=== PATIENT | male | born 1975 | race Caucasian/White ===

== ENCOUNTER → 2022-04-13 16:14 | Outpatient (ROUT) | payer OTHER, SELFPAY ==
[2022-04-13 17:58] LABS: Influenza A - CEPHEID Flu A NEGATIVE (NEGATIVE); Influenza B - CEPHEID Flu B NEGATIVE (NEGATIVE); Respiratory Syncytial Virus Negative (Negative)
[2022-04-13 18:02] LABS: COVID-19 CEPHEID 4-PLEX PCR Negative (Negative)
== END ==
PROVIDERS: PCP Family Medicine; Visit Provider Family Medicine
DX: R05.9 Cough, unspecified (principal); R68.83 Chills (without fever); Z20.822 Contact with and (suspected) exposure to COVID-19
CPT/HCPCS: 0241U

== ENCOUNTER → 2022-11-16 10:14 | Outpatient (CLI) | payer OTHER, SELFPAY ==
--- NOTE | 2022-11-16 | DI.RAD.S_ITS ---
PROCEDURE: XR FOOT RT MIN 3V INDICATIONS: RIGHT FOOT PAIN TECHNIQUE: 3 views of the foot were acquired. COMPARISON: None. FINDINGS: Bones: No fractures or dislocations. No suspicious bony lesions. Soft tissues: No tibiotalar joint effusion. Achilles tendon appears normal. IMPRESSION: No evidence acute bony abnormality. Dictated by: Nolberto Truong M.D. on 11/16/2022 at 15:02 Approved by: Nolberto Truong M.D. on 11/16/2022 at 15:02
== END ==
PROVIDERS: PCP Family Medicine; Referring Provider Family Medicine; Visit Provider Family Medicine
DX: L98.9 Disorder of the skin and subcutaneous tissue, unspecified (principal); M79.5 Residual foreign body in soft tissue
CPT/HCPCS: 73630

== ENCOUNTER → 2024-01-15 11:42 | Outpatient (CLI) | payer OTHER, SELFPAY ==
--- NOTE | 2024-01-15 11:47 | DI.RAD.S_ITS ---
PROCEDURE: XR HIP W PEL IF DONE BILAT 2V INDICATIONS: HIP BACK PAIN TECHNIQUE: < 3 views of the hip were acquired. COMPARISON: None. FINDINGS: Bones: There are no osseous abnormalities. SI and hip joints: Normal in width and alignment without arthritic change Soft tissues: No soft tissue swelling, calcification or mass. IMPRESSION: Normal pelvis Dictated by: Hakeem Veras M.D. on 01/16/2024 at 8:28 Approved by: Hakeem Veras M.D. on 01/16/2024 at 8:30
--- NOTE | 2024-01-15 11:47 | DI.RAD.S_ITS ---
PROCEDURE: XR LUMBAR SPINE 2-3V INDICATIONS: HIP BACK PAIN TECHNIQUE: 3 views of the lumbar spine were acquired. COMPARISON: None. FINDINGS: Lumbar spine curvature and alignment: Mild dextroscoliotic curve appreciated. There is 3 millimeters of L4 anterior subluxation due to degenerate facet disease. Bones: There are no osseous abnormalities. Disc spaces: Normal in height without significant degeneration. Intervertebral foramen: Moderate degenerative disc disease present at L1-2 through L4-5 with mild L5-S1 degenerative disc disease. There is moderate L5-S1 and L4-5 degenerative facet disease. Soft tissues: No soft tissue swelling, calcification or mass. IMPRESSION: Degeneration. Dictated by: Hakeem Veras M.D. on 01/16/2024 at 8:12 Approved by: Hakeem Veras M.D. on 01/16/2024 at 8:13
== END ==
LOC: RAD 11:45
PROVIDERS: PCP Family Medicine; Referring Provider Family Medicine; Visit Provider Family Medicine
DX: M51.36 Other intervertebral disc degeneration, lumbar region (principal); M51.37 Other intervertebral disc degeneration, lumbosacral region; M47.816 Spondylosis without myelopathy or radiculopathy, lumbar region; M47.817 Spondylosis without myelopathy or radiculopathy, lumbosacral region; M54.50 Low back pain, unspecified; M25.551 Pain in right hip; M25.552 Pain in left hip; G89.29 Other chronic pain
CPT/HCPCS: 72100; 73521

== ENCOUNTER → 2024-08-05 16:39 | Outpatient (CLI) | payer OTHER, SELFPAY ==
--- NOTE | 2024-08-05 | DI.RAD.S_ITS ---
PROCEDURE: XR HIP W PEL IF DONE RT 2V INDICATIONS: HIP PAIN TECHNIQUE: AP pelvis with lateral view(s) of the right hip(s). COMPARISON: [facility], CR, XR HIP W PEL IF DONE BILAT 2V, 01/15/2024, 11:45. FINDINGS: Bones: No fractures or dislocations. Pelvic ring appears intact. No suspicious bony lesions. Soft tissues: The visualized bowel gas pattern is normal. No suspicious soft tissue calcifications. IMPRESSION: No acute bony abnormality. Dictated by: Nimesh Jackson M.D. on 08/06/2024 at 1:58 Approved by: Nimesh Jackson M.D. on 08/06/2024 at 1:59
== END ==
LOC: RAD 16:40
PROVIDERS: PCP Family Medicine; Referring Provider Family Medicine; Visit Provider Family Medicine
DX: M25.551 Pain in right hip (principal)
CPT/HCPCS: 73502

== ENCOUNTER → 2025-02-01 09:25 | Outpatient (CLI) | payer OTHER, SELFPAY ==
--- NOTE | 2025-02-01 09:26 | DI.MRI.S_ITS ---
PROCEDURE: MR HIP RT WO CON INDICATIONS: PAIN TECHNIQUE: Noncontrast coronal T1 spin echo and STIR through the bony pelvis. Coronal and axial T2 fast spin echo with fat saturation, sagittal T1 spin echo, and oblique axial T2 fast spin echo with fat saturation through the hip. COMPARISON: [facility], CR, XR HIP W PEL IF DONE RT 2V, 08/05/2024, 16:48. FINDINGS: Image quality: Excellent. Bones and joints: Bone marrow of the pelvic ring and proximal femurs show normal signal throughout. No intraosseous lesions or fractures. No avascular necrosis of the femoral heads. Partially imaged degenerative disc disease and facet arthropathy in the lower lumbar spine. Tendons and ligaments: The gluteus medius and minimus tendons appear intact, without associated muscle atrophy. The nearby proximal iliotibial band also appears intact. The iliopsoas tendon appears intact, without adjacent bursal fluid collections or evidence for impingement syndrome. The origin of the hamstring tendon is intact at the ischial tuberosity, as well as the associated sacrotuberous ligament. The straight and reflected heads of the rectus femoris muscle origin appear intact, as well as the conjoint tendon. The ligamentum teres appears intact where visualized. Labrum and cartilage: The acetabular labrum appears intact in the absence of intra-articular contrast. Cartilage surface of the femoral head appears of normal thickness. Soft tissues: Visualized muscles demonstrate normal bulk and internal signal. Quadratus femoris muscle demonstrates no internal edema to suggest ischiofemoral impingement. The proximal sciatic neurovascular bundle appears normal adjacent to the hamstring tendons. No free pelvic fluid. Bladder wall thickness is normal. Genitourinary structures and bowel loops appear normal where visualized. IMPRESSION: . Unremarkable left hip. Degenerative changes of the lower lumbar spine Dictated by: Mik Maza M.D. on 02/03/2025 at 13:34 Approved by: Mik Maza M.D. on 02/03/2025 at 13:37
== END ==
LOC: MRI 09:25
PROVIDERS: PCP Family Medicine; Referring Provider Family Medicine; Visit Provider Family Medicine
DX: M47.816 Spondylosis without myelopathy or radiculopathy, lumbar region (principal); M25.551 Pain in right hip; G89.29 Other chronic pain
CPT/HCPCS: 73721

== ENCOUNTER → 2025-03-03 07:08 | Outpatient (CLI) | payer OTHER, SELFPAY ==
--- NOTE | 2025-03-03 07:35 | DI.MRI.S_ITS ---
PROCEDURE: MR LUMBAR SPINE WO CON INDICATIONS: Pain TECHNIQUE: Noncontrast sagittal T1 spin echo and T2 fast echo, sagittal STIR, and T2 fast spin echo through the lumbar spine. In cases with scoliosis, additional coronal T2 fast spin echo may be performed. COMPARISON: [facility], CR, XR LUMBAR SPINE 2-3V, 01/15/2024, 11:45. FINDINGS: Image quality: Excellent Please note, there are 6 non rib-bearing lumbar type vertebral body. Dextroscoliosis lumbar spine, centered at L3-4. Grade 1 anterolisthesis of L4 on L5, L5 on L6. Multiple small Schmorl's node in the lumbar spine. Vertebral body height and lumbar spine are well maintained. Multilevel fibrovascular endplate change, most pronounced and severe at the right aspect of L4-5. Multilevel disc bulge and disc desiccation. Conus terminates at the level of T12-L1, and is unremarkable. Right neural foraminal stenosis: Moderate at L4-5, severe at L5-L6. Left neural foraminal stenosis: Mild at L1-2, L2-3, L3-4, moderate at L4-5, L5 on L6. Axial images: T12-L1: No central canal stenosis. L1-2: Mild disc bulge. No central canal stenosis. L2-3: Disc bulge. Mild bilateral facet arthropathy. No central canal stenosis. L3-4: Moderate bilateral facet arthropathy. No central canal stenosis. L4-5: Diffuse disc bulge, superimposed on left foraminal disc protrusion. Moderate bilateral facet arthropathy. Moderate central canal stenosis. L5-L6: Diffuse disc bulge. Severe bilateral facet arthropathy. Posterior disc uncovering. Moderate central canal stenosis. L6-S1: Mild bilateral facet arthropathy. No central canal stenosis. Visualized sacrum is intact. 9 mm small exophytic T2 mildly hypoechoic lesion in the posterior mid zone of the right kidney, incompletely characterized. IMPRESSION: 1. 6 non rib-bearing lumbar type vertebral bodies. 2. Multilevel degenerative changes, most pronounced at L5-L6, where there is moderate central canal stenosis, and severe right and moderate left neural foraminal stenosis. 3. 9 mm right renal lesion, incompletely characterized. Recommend further evaluation with CT or MRI renal protocol. Dictated by: Lakeisha Magdaleno M.D. on 03/03/2025 at 14:11 Approved by: Lakeisha Magdaleno M.D. on 03/03/2025 at 14:24
== END ==
PROVIDERS: PCP Family Medicine; Referring Provider Family Medicine; Visit Provider Family Medicine
DX: M47.816 Spondylosis without myelopathy or radiculopathy, lumbar region (principal); M47.817 Spondylosis without myelopathy or radiculopathy, lumbosacral region; M48.061 Spinal stenosis, lumbar region without neurogenic claudication; M54.50 Low back pain, unspecified; M25.551 Pain in right hip; M25.552 Pain in left hip; N28.9 Disorder of kidney and ureter, unspecified; G89.29 Other chronic pain
CPT/HCPCS: 72148